=== PATIENT | female | born 1970 | race Caucasian/White ===

== ENCOUNTER 2020-02-08 14:31 | Emergency (ER) | payer OTHER ==
[~2020-02-08] VITALS: Ht 162.6 cm; Wt 83.9 kg
[~2020-02-08 14:31] MED LIST: ALPR0.252 PO; ARIP20TA1 PO; CITA20TA15 PO; LISI10TA11 PO
[2020-02-08 14:34] VITALS: BP 146/93
--- NOTE | 2020-02-08 14:37 | NUR ---
PT AMBULATED TO BED 4, STEADY GAIT.
--- NOTE | 2020-02-08 14:45 | NUR ---
49 YO FEMALE CO RIGHT HIP PAIN THAT RADIATES TO LEG AND MAKES HER FOOT TINGLE SINCE LAST NIGHT. PT DENIES ANY INJURY TO HIP OR LEG. NO REDNESS OR SWELLING OBSERVED. RX MEDS: SEROQUEL, LATUDA, ADDERAL AND LISINOPRIL PHM: HTN, BIPOLAR, MDD
--- NOTE | 2020-02-08 14:55 | NUR ---
ERMD AT BEDSIDE EVALUATING PT
[2020-02-08] MEDS ORDERED: KETOROLAC 30 MG/ML VIAL IM ONE (15:05)
[2020-02-08 15:14] VITALS: BP 146/93
--- NOTE | 2020-02-08 15:15 | NUR ---
Patient discharged with v/s stable. Written and verbal after care instructions given and explained. Patient alert, oriented and verbalized understanding of instructions. Ambulatory with steady gait. All questions addressed prior to discharge. ID band removed. Patient advised to follow up with PMD. Rx of IBUPROFEN AND NORCO given. Patient educated on indication of medication including possible reaction and side effects. Opportunity to ask questions provided and answered.
== END 2020-02-08 15:15 | disposition home or self-care (01) ==
LOC: MED 14:31
DX: M54.31 Sciatica, right side (principal); I10 Essential (primary) hypertension; Z79.899 Other long term (current) drug therapy
CPT/HCPCS: 96372; 99283; J1885

== ENCOUNTER 2024-06-26 19:43 | Emergency (ER) | payer OTHER ==
[~2024-06-26 19:43] MED LIST changes: +LISI-951 PO; -LISI10TA11 PO
[2024-06-27] MEDS ORDERED: CEPH-588 PO (01:23)
[2024-06-27] MEDS ORDERED: NAPR-337 PO (01:23)
== END 2024-06-26 20:14 | disposition left against medical advice (07) ==
LOC: MED 19:43
DX: R10.2 Pelvic and perineal pain (principal); Z53.21 Procedure and treatment not carried out due to patient leaving prior to being seen by health care provider

== ENCOUNTER 2024-06-26 21:01 | Emergency (ER) | payer OTHER ==
[~2024-06-26] VITALS: Ht 160 cm; Wt 66.2 kg
[2024-06-26 21:08] VITALS: BP 174/96; PULSE 104; RESP 18; TEMP 98; O2SAT 97
[2024-06-26 23:40] VITALS: BP 174/96; PULSE 104; RESP 18; TEMP 98
[2024-06-26 23:44] VITALS: O2SAT 97
[2024-06-27 00:44] LABS: APPEARANCE,URINE CLEAR (CLEAR); BILIRUBIN,URINE NEGATIVE (NEGATIVE); BLOOD, URINE NEGATIVE (NEGATIVE); COLOR,URINE YELLOW (YELLOW); LEUKOCYTE ESTERASE ,URINE 1+ (NEGATIVE); NITRITE, URINE NEGATIVE (NEGATIVE); PH,URINE 6.5 (5.0-9.0); PROTEIN,URINE NEGATIVE (NEGATIVE); UGLUCOSE NEGATIVE (NEGATIVE); UROBILINOGEN,URINE 0.2 EU/dL (0.2 - 1)
[2024-06-27] MEDS: KETOROLAC 30 MG/ML VIAL IM ONE (01:13)
[2024-06-27 01:20] LABS: BARBITURATE, URINE NEGATIVE ng/ml (NEG <=200)
[2024-06-27 01:21] LABS: AMPHETAMINE, URINE NEGATIVE ng/ml (NEG <=1000); BENZODIAZEPINE, URINE POSITIVE ng/mL (NEG <=200); CANNABINOID, URINE POSITIVE ng/mL (NEG <=50); COCAINE, URINE POSITIVE ng/mL (NEG <=300); OPIATE, URINE NEGATIVE ng/mL (NEG <=2000); PHENCYCLIDINE SCREEN,URINE NEGATIVE ng/mL (NEG <=25)
[2024-06-27] MEDS ORDERED: CEPH-588 PO (01:23)
[2024-06-27] MEDS ORDERED: NAPR-337 PO (01:23)
[2024-06-27 01:24] LABS: BACTERIA,URINE 10-30 (MOD) /HPF (None Seen); MUCUS,URINE 1+ /LPF (None Seen); RBC,URINE 0-5 /HPF (0-5); SQUAMOUS EPITHELIAL CELL,UR 0-3 (FEW) /LPF (0-3 (FEW))
== END 2024-06-27 01:32 | disposition home or self-care (01) ==
LOC: MED 21:01
DX: N39.0 Urinary tract infection, site not specified (principal); E16.2 Hypoglycemia, unspecified; I10 Essential (primary) hypertension; F14.90 Cocaine use, unspecified, uncomplicated; Z79.899 Other long term (current) drug therapy
CPT/HCPCS: 80305; 81001; 81025; 87086; 87491; 96372; 99283; J1885; 87186